=== PATIENT | male | born 1955 | race Caucasian/White ===

== ENCOUNTER 2023-07-25 10:37 | Emergency (ER) | payer BC ==
[~2023-07-25] VITALS: Ht 172.7 cm; Wt 60.0 kg
[2023-07-25 10:42] VITALS: O2SAT 96
[2023-07-25] MEDS: IBUPROFEN 600MG TABLET PO ONE (11:50)
[2023-07-25] MEDS ORDERED: T3 PO (13:24)
[2023-07-25] MEDS ORDERED: DOCU250C14 MT (13:24)
[2023-07-25] MEDS ORDERED: IBUP-2029 MT (13:24)
[2023-07-25 13:53] VITALS: BP 158/75; PULSE 80; RESP 16; TEMP 98
== END 2023-07-25 15:10 | disposition home or self-care (01) ==
LOC: ER 11:13
DX: S22.32XA Fracture of one rib, left side, initial encounter for closed fracture (principal); Z79.899 Other long term (current) drug therapy; W18.39XA Other fall on same level, initial encounter; Y93.89 Activity, other specified; Y92.89 Other specified places as the place of occurrence of the external cause; Y99.8 Other external cause status
CPT/HCPCS: 71101; 99283

== ENCOUNTER 2023-07-31 14:40 | Emergency (ER) | payer BC ==
[~2023-07-31] VITALS: Ht 172.7 cm; Wt 70.0 kg
[~2023-07-31 14:40] MED LIST: DOCU250C14 MT; IBUP-2029 MT; T3 PO
[2023-07-31 14:50] VITALS: O2SAT 98
[2023-07-31 18:42] LABS: BASOPHILS % 1.3 % (0.0-2.0); EOSINOPHILS % 1.3 % (0.0-5.0); HEMATOCRIT. 41.7 % (42.0-52.0); HEMOGLOBIN. 13.9 g/dL (14.0-18.0); LYMPHOCYTES % 26.5 % (20.0-50.0); MEAN CORPUSCULAR HEMOGLOBIN 29.7 pg (28.0-32.0); MEAN CORPUSCULAR HGB CONC 33.4 g/dL (31.0-37.0); MEAN CORPUSCULAR VOLUME 88.8 fL (80.0-94.0); MEAN PLATELET VOLUME 7.6 fl (7.4-10.4); MONOCYTES % 12.4 % (2.0-8.0); NEUTROPHILS % 58.5 % (40.0-76.0); PLATELET 399 x1000/uL (130-400); RED CELL DISTRIBUTION WIDTH 14.8 % (11.6-14.6); WHITE BLOOD COUNT 8.1 x1000/uL (4.5-11.0)
[2023-07-31 18:44] LABS: INR 0.9; PROTHROMBIN TIME 10.5 sec (9.6-11.0)
[2023-07-31 18:58] LABS: ALANINE AMINOTRANSFERASE 21 IU/L (10-49); ALBUMIN 4.5 g/dL (3.2-4.8); ASPARTATE AMINOTRANSFERASE 32 IU/L (<34); BILIRUBIN TOTAL 0.2 mg/dL (0.1-1.0); CALCIUM 9.5 mg/dL (8.7-10.4); CARBON DIOXIDE 27 mEq/L (21-32); CHLORIDE 103 mEq/L (98-107); CREATININE 1.2 mg/dL (0.6-1.3); GLUCOSE 124 mg/dL (70-105); POTASSIUM 4.1 mEq/L (3.5-5.1); PROTEIN TOTAL 8.2 g/dL (6.0-8.3); SODIUM 136 mEq/L (136-145); UREA NITROGEN BLOOD 23 mg/dL (9-23)
[2023-07-31] MEDS ORDERED: MOM MT (20:08)
[2023-07-31] MEDS ORDERED: BISA10SU62 RC (20:08)
[2023-07-31] MEDS ORDERED: NA P230E RC (20:08)
[2023-07-31 20:50] VITALS: BP 154/76; PULSE 99; RESP 16; TEMP 98.6
== END 2023-07-31 21:00 | disposition home or self-care (01) ==
LOC: ER 14:40
DX: K59.00 Constipation, unspecified (principal)
CPT/HCPCS: 36415; 74176; 80053; 85025; 99284